=== PATIENT | male | born 1950 | race Caucasian/White ===

== ENCOUNTER 2020-01-22 17:40 | Emergency (ER) | payer MEDICARE, SELFPAY ==
[2020-01-22 17:42] VITALS: BP 132/60; PULSE 87; RESP 18; TEMP 36.7; O2SAT 96
--- NOTE | 2020-01-22 17:45 | DI.RAD_ITS ---
EXAM: XR WRIST RT COMPLETE CLINICAL HISTORY: fall TECHNIQUE: COMPARISON: CR,XR XR HAND RT COMPLETE from 01/22/2020 FINDINGS: Four views of the wrist and three views of the hand were obtained. There is a mildly comminuted mode rately displaced fracture of distal radius which extends through the articular surface and appears si gnificantly displaced at the articular surface. There is an associated fracture of the base of the u lnar styloid. No additional carpal fracture or fracture of the hand identified. IMPRESSION: RADIATION DOSE DELIVERED: Total DLP
--- NOTE | 2020-01-22 17:49 | W.ED.GENAD ---
Discharge Plan Disposition Patient Disposition: HOME Condition: Good Discharge Details Clinical Impression: Closed fracture distal radius and ulna Primary Care Provider: [facility],Local ED Provider: Tita Griffin Home Meds and New Rx's Prescriptions: Continued aspirin 81 mg Tablet,Delayed Release (Dr/Ec) 81 mg PO QID RF: 0 Discharge Instructions Instructions: Acetaminophen (By mouth), Ibuprofen (By mouth), Wrist Fracture in Adults (ED) Additional Instructions: In regard to your fractured wrist, please encourage rest, ice, elevation. May use Tylenol and ibuprofen as needed for discomfort. Please keep splint on until reevaluated by orthopedics. Please call orthopedics tomorrow to schedule follow-up appointment, number listed below. If you develop any new or worsening symptoms please seek care urgently once again. Tomorrow, to help with local living situation and community options, please call community connections, the [place] on aging, economic services. This is all in the information provided to you by care management. I requested that you establish with a local primary care to assess and manage your other chronic issues. Referrals: Marvin Barnes MD [ [facility] STAFF PHYSICIAN] - Discharge Data Discharge Date/Time-TO BE ENTERED AT DEPARTURE: 01/22/20 20:41 Medical Decision Making Patient is a 69-year-old [id number]-rlatrlea male presents today with chief complaint of right wrist pain. Reports that yesterday he fell when he tripped while walking in the dark. States that he was seen at [facility]. He reports at that time, he was diagnosed with fracture and was splinted. However, he since remove the splint. He reports that he was supposed to have the fracture reduced but that the right people were not there. He denies further injury today. Denies any numbness or tingling. He states that at the time of the fall yesterday, he also suffered ear laceration which was repaired at [facility]. Denied any actual head injury. No loss of consciousness or headache. Patient reports that he is noted area. States that he did get to the [place] area approximately 2 weeks ago after visiting his son in [place]. He reports he is currently homeless and is seeking out assistance and places to live. Patient has previously resided in [place] but this is not been there for approximately 6 months. Reports that he has always lived in [place] is having to reside here permanently. On exam, patient appears nontoxic. He is disheveled and appears chronically unwell and unkempt. He has laceration appears to been stitched appropriately to the right earlobe. Right wrist is concerning for circumferential ecchymosis, swelling and discomfort particular of the distal radius. He has 2+ distal pulses. He also has some discomfort over the dorsal proximal aspect of the hand. Range of motion of the digits are intact. Brisk capillary refill. He is tender over the anatomic snuffbox. Patient and I discussed repeat imaging. Will request notes from [facility] last night. FINDINGS: Bones/joints: Redemonstrated nondisplaced acute appearing fracture through the base of the ulnar styloid. Redemonstrated distal radial fracture which appears to be comminuted, intra-articular, and with mild displacement of at least 1 bony fragment. Soft tissues: Soft tissue swelling about the wrist. IMPRESSION: Acute appearing fractures of the distal radius and ulna. Reviewed note from [facility]. Patient was seen there yesterday. CT of head was obtained as the patient had been confused. No intracranial pathology. I did do an extensive work-up on the patient without any abnormality diagnosed. Patient was intoxicated when he first arrived. He was kept overnight and warmth and safe place was given food this morning. Patient was splinted and discharged to home this morning. Took the bus to our facility. I discussed the findings of the x-ray with the patient. Advised that no immediate surgical intervention or reduction is warranted. However, we will re-splint the patient. I am wondering if the sugar tong splint that the patient is describing may have been too large for him to be able to tolerate particularly as he is almost. I will place a radial splint with thumb spica. Care management has spoken with patient and is attempting to get him housing for the evening. We will send him to local hotel with food for the night the patient will be with follow-up tomorrow to work on a long-term solution to his current living situation. Patient does have multiple family members and he is refusing to call to ask for assistance. Patient had been residing with some of them recently and that they would be able to help him if he really needed so but he would prefer to hold off on calling family members at this time. He states that is back-up plan is to take a bus to stay with his brother, sounds that he has the means to do so. Discussed with patient. Advised splint. A plaster splint was made by myself, capillary refill and sensation remain intact after application. Reports imporved discofmort. Patient would like to be discharged. Will send out with Tylenol and Ibuprofen if pain returns. He will call ortho tomorrow to schedule appointment. He has a phone. He will also reach out to local program that can help establish him locally. Return precautions given. All quesitons and concerns were addressed, he is in agreement with this plan. HPI General Mode of arrival: ambulatory. Date/Time Provider Initiated Documentation: 01/22/20 17:49. Limitations to Documentation: no limitations. Information obtained by: patient and RN notes reviewed. History of Present Illness 69 year old M presents to the emergency department with the chief complaint of right wrist pain, described as severe, with intensity rated at 8. Quality is described as aching, and is localized to the right and upper extremity. Patient reports no radiation. Patient started experiencing this day(s) (1) and it has been constant. Immobilization improves symptom(s), Movement worsens symptoms . Patient notes no other symptoms.. Patient did receive the following treatments prior to arrival, none Related Data Home Medications Medication Instructions Recorded Confirmed aspirin 81 mg PO QID 01/22/20 01/22/20 Allergies Allergy/AdvReac Type Severity Reaction Status Date / Time No Known Allergies Allergy Unverified 01/22/20 17:41 Review of Systems Constitutional Constitutional: Reports as per HPI, Denies chills, Denies fever(s), Denies headache(s) and Denies weakness ENT Ears, Nose, Mouth, and Throat: Denies headache(s) Cardiovascular Cardiovascular: Reports as per HPI Respiratory Respiratory: Reports as per HPI and Denies cough Musculoskeletal Musculoskeletal: Reports as per HPI and Denies tingling Integumentary/Breasts Skin/Breast: Reports as per HPI, Denies rash and Denies wounds Neurologic Neurologic: Reports as per HPI, Denies headache(s), Denies tingling, Denies paresthesias and Denies weakness [facility] Social History Smoking/Tobacco Use Status: Current every day Tobacco Type: cigarettes Alcohol Intake: never Drug use: Never Substance use type: does not use Exam Const General: cooperative, comfortable, no acute distress, well developed and disheveled Nutritional Appearance: well nourished and obese Orientation: alert and awake [facility] Head: normal to inspection, no palpable skull fracture, normocephalic and atraumatic Ears: hearing grossly normal bilaterally and external ears abnormal (right ear has #2 absorbable stitches noted, well approximated wound) Face and sinus: normal facial exam Mouth: oral mucosae normal Neck Neck: normal visual inspection, full ROM, no lymphadenopathy and no meningeal signs Chest Chest: normal inspection of the chest, normal palpation of entire chest wall, no localized rib tenderness and no tenderness Resp Effort & Inspection: normal respiratory effort, able to speak in complete sentences and no respiratory distress Auscultation: clear to auscultation bilaterally Cardio Rate: regular rate Rhythm: regular rhythm Heart Sounds: S1 normal and S2 normal GI Inspection: normal to inspection Palpation: soft and nontender Skin General skin exam: ecchymosis (circumfrential right wrist) Trauma: laceration (to right ear) Neuro General: patient alert and patient awake Cognition: normal cognition Speech: speech normal Gait: normal gait Motor: muscle tone normal throughout Sensory Exam: no sensory deficits noted Extrem Right upper extremity: shoulder/upper arm Details: normal to inspection, elbow/forearm Details: normal to inspection, normal ROM and distal pulses intact; no tenderness, no swelling and no deformity, wrist Details: abnormal to inspection (swelling and ecchymosis to wrist) Details: joint swelling; no obvious deformity and no erythema, tenderness Location: of the distal radius, of the distal ulna and of the anatomic snuffbox, swelling Location: of the dorsal wrist and of the volar wrist, ecchymosis, normal vascular exam and radial pulse present; ROM abnormal (patient refusing to move secondary to pain), no unusual warmth, no crepitus and no deformity and hand Details: normal to inspection, normal capillary refill, neuromotor exam normal, neurosensory exam normal, tendon exam normal, tenderness Location: of the dorsal hand Location: proximally, vascular exam Details: radial pulse present and normal capillary refill, normal ROM of fingers and ecchymosis Location: of the dorsal hand Location: proximally Psych Appearance: grossly normal and well kempt Mental Status: mental status grossly normal Speech and Movement: speech and movement normal
[2020-01-22] MEDS: Acetaminophen 500 MG TAB 1000 MG PO (18:24)
--- NOTE | 2020-01-22 18:34 | DI.VRAD_ITS ---
Addendum created by Iron Segovia DO on 01/22/2020 6:37:36 PM EDT: Addendum: Although better demonstrated on the same day radiograph of the hand the distal radial fracture appears to be comminuted with mild displacement of at least 1 bony fragment in addition to be intra-articular. Initial report created on 01/22/2020 6:33:28 PM EDT: PROCEDURE INFORMATION: Exam: XR Right Wrist Exam date and time: 01/22/2020 6:08 PM Age: 69 years old Clinical indication: Other: Fall TECHNIQUE: Imaging protocol: XR Right wrist. Views: 3 or more views. COMPARISON: No relevant images were readily available for comparison purposes. FINDINGS: Bones/joints: There is an acute nondisplaced intra-articular fracture of the distal radius. Nondisplaced acute appearing fracture at the base of the ulnar styloid. Soft tissues: Soft tissue swelling about the wrist. IMPRESSION: Nondisplaced acute appearing fractures of the distal radius and ulna. Dictated and Authenticated by: Iron Segovia MD. Ordering:EDGARD Rivers MD
--- NOTE | 2020-01-22 18:36 | DI.VRAD_ITS ---
PROCEDURE INFORMATION: Exam: XR Right Hand Exam date and time: 01/22/2020 6:08 PM Age: 69 years old Clinical indication: Other: Fall; Additional info: Fall, wrist pain TECHNIQUE: Imaging protocol: XR Right hand. Views: 3 or more views. COMPARISON: No relevant images were readily available for comparison purposes. FINDINGS: Bones/joints: Redemonstrated nondisplaced acute appearing fracture through the base of the ulnar styloid. Redemonstrated distal radial fracture which appears to be comminuted, intra-articular, and with mild displacement of at least 1 bony fragment. Soft tissues: Soft tissue swelling about the wrist. IMPRESSION: Acute appearing fractures of the distal radius and ulna. Dictated and Authenticated by: Iron Segovia MD. Ordering:EDGARD Rivers MD
[2020-01-22] MEDS: Ibuprofen 600 MG TAB PO (18:50)
--- NOTE | 2020-01-22 20:20 | PDOC.ERCMPRO ---
- If Service Date Differs Date of service: 01/22/20 Time of Service: 20:20 Care Management Progress Note S/O: Zach comes to the ED via EMS after falling and injuring his right arm. Zach reports he is homeless and has nowhere to spend the night. He reportedly lived with his sister in [place] 6 months ago but had to move out when his sister sold the house. Since then, he has spent some time in [place] visiting his son Marvin and for the last 2 weeks, he has been camping in [place], [place]. Earlier this afternoon, he took a bus to [place], [place], where he states he intends to stay. CM meets with Zach at the request of ED provider to help him figure out where he will spend the night. Zach reports he receives a little over $800 per month in social security income and only has approximately $40 of that money left. CM contacts [place] to inquire as to emergency housing but Zach is found ineligible for the assistance because he is not a [place] Resident. CM then contacts the [facility] in [place] but they do not have any available beds this evening and are reluctant to accept Zach because of his recent travel. They suggest CM contact the [facility] in [place], [place], where Zach could quarantine for 2 weeks. The [facility] ([phone]), however, is an inappropriate option for Zach, as they house homeless individuals who have tested positive for Covid-19. CM also contacts the [facility] in [place] but has to leave a message. Zach has no family or friends in the area and he is unwilling to contact his son in [place], sister in [place], or brother in [place], to ask for help paying for a motel room for the night. He states he is going to have to camp in his [facility] out [place] the [facility] for tonight and says he is going to be just fine. A: Zach is a 69 year old male who presents to the ED due to an injured wrist. P: Zach is provided contact information for [facility], [facility] and [facility] and is instructed to call all three agencies in the morning to enlist their assistance in finding housing.
--- NOTE | 2020-01-22 20:21 | NUR.NOTE ---
Refferal sent to Care Management for PCP establishment. [facility] ED Nursing Note:
== END 2020-01-22 20:41 | disposition home or self-care (01) ==
PROVIDERS: Emergency Provider Physician Assistant
DX: S52.571A Other intraarticular fracture of lower end of right radius, initial encounter for closed fracture (principal); S52.611A Displaced fracture of right ulna styloid process, initial encounter for closed fracture; W19.XXXA Unspecified fall, initial encounter; Z59.0 Homelessness
CPT/HCPCS: 29125; 99284; 73110; 73130; 99283